=== PATIENT | male | born 1990 | race Caucasian/White ===

== ENCOUNTER 2018-04-11 19:55 | Emergency (ER) | payer OTHER ==
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
[2018-04-11] MEDS ORDERED: IOPAMIDOL (ISOVUE-300) 100 ML BTL ONE (20:22)
[2018-04-11 20:42] LABS: INR 2.13 (0.83-1.16); PROTIME(PATIENT) 23.9 SEC (12.0-15.0)
[2018-04-11 21:40] VITALS: BP 123/82
== END 2018-04-11 21:40 | disposition home or self-care (01) ==
DX: R07.81 Pleurodynia (principal); V89.2XXA Person injured in unspecified motor-vehicle accident, traffic, initial encounter; Y92.410 Unspecified street and highway as the place of occurrence of the external cause; Z86.2 Personal history of diseases of the blood and blood-forming organs and certain disorders involving the immune mechanism; Z79.899 Other long term (current) drug therapy
CPT/HCPCS: 82435-PO; 82565-PO; 82947-PO; 84132-PO; 84295-PO; 84520-PO; 85014-PO; Q9967